=== PATIENT | male | born 1945 | race Caucasian/White ===

== ENCOUNTER 2021-10-13 15:00 | Inpatient (IN) | payer BC ==
[~2021-10-13] VITALS: Ht 182.9 cm; Wt 129.7 kg
[2021-10-13 16:21] LABS: BASOPHILS % 0.6 % (0.0-2.0); EOSINOPHILS % 1.6 % (0.0-5.0); HEMATOCRIT. 35.9 % (42.0-52.0); HEMOGLOBIN. 11.5 g/dL (14.0-18.0); LYMPHOCYTES % 19.6 % (20.0-50.0); MEAN CORPUSCULAR VOLUME 87.3 fL (80.0-94.0); NEUTROPHILS % 67.2 % (40.0-76.0); PLATELET 134 x1000/uL (130-400); RED BLOOD CELL COUNT 4.11 mill/uL (4.7-6.1); RED CELL DISTRIBUTION WIDTH 19.8 % (11.6-14.6)
[2021-10-13 16:24] LABS: CHLORIDE 106 mEq/L (98-107)
[2021-10-13] MEDS ORDERED: PIPERACILLIN/TAZ 3.375G PREMIX 50 ML IV ONE (16:30)
[2021-10-13] MEDS ORDERED: FUROSEMIDE 40MG/4ML VIAL IV ONE (16:30)
[2021-10-13] MEDS ORDERED: VANCOMYCIN 1G PREMIX 200 ML IV ONE (16:30)
[2021-10-13 16:52] LABS: BG CARBOXYHEMOGLOBIN 0.4 % (0.5-1.5); BG DEOXYHEMOGLOBIN 7.3 % (0.0-5.0); BG FRACTION INSPIRED OXYGEN 28; BG HCO3 ACT 27.2 mmol/L (22.0-26.0); BG METHEMOGLOBIN 0.3 % (0.0-1.5); BG OXYGEN SATURATION 92.6 % (92.0-98.5); BG PCO2 45.3 mmHg (35.0-45.0); BG PH 7.397 (7.350-7.450); BG PO2 70.9 mmHg (75.0-100.0); BG SAMPLE SITE RIGHT RADIAL; BG TOTAL HEMOGLOBIN 11.6 g/dL (12.0-18.0); BG VENT MODE NASAL CANNULA
[2021-10-13] MEDS ORDERED: ENOXAPARIN 40MG/0.4ML SYR SUBCUT SCH (18:30)
[2021-10-13] MEDS ORDERED: CEFTRIAXONE 1 G PREMIX 50 ML IV NR (18:45)
[2021-10-13 22:00] VITALS: BP 122/53
[2021-10-13] MEDS: ENOXAPARIN 30MG/0.3ML SYR SUBCUT SCH (22:05)
[2021-10-14] VITALS: BP 102/55
[2021-10-14 00:37] LABS: CREATINE KINASE 78 IU/L (39-308)
[2021-10-14 04:00] VITALS: BP 110/45
[2021-10-14 06:05] LABS: BASOPHILS % 0.6 % (0.0-2.0); EOSINOPHILS % 1.3 % (0.0-5.0); HEMOGLOBIN. 10.9 g/dL (14.0-18.0); LYMPHOCYTES % 15.7 % (20.0-50.0); MEAN CORPUSCULAR HEMOGLOBIN 27.6 pg (28.0-32.0); MEAN PLATELET VOLUME 9.8 fl (7.4-10.4); MONOCYTES % 11.1 % (2.0-8.0); NEUTROPHILS % 71.3 % (40.0-76.0); PLATELET 136 x1000/uL (130-400); RED BLOOD CELL COUNT 3.93 mill/uL (4.7-6.1); RED CELL DISTRIBUTION WIDTH 19.7 % (11.6-14.6)
[2021-10-14 06:34] LABS: CHLORIDE 107 mEq/L (98-107)
[2021-10-14 06:39] LABS: CREATINE KINASE 76 IU/L (39-308)
[2021-10-14 06:43] LABS: HDL CHOLESTEROL 37 mg/dL (40-59); LDL CHOLESTEROL 46 mg/dL (5-100)
[2021-10-14 08:00] VITALS: BP 103/43
[2021-10-14] MEDS ORDERED: DEXT 5%/0.9% NACL 500 ML IV PRN (08:15)
[2021-10-14] MEDS: FUROSEMIDE 40MG/4ML VIAL IV SCH (08:26)
[2021-10-14] MEDS: ENOXAPARIN 30MG/0.3ML SYR SUBCUT SCH ×2 (08:27→20:37)
[2021-10-14 12:00] VITALS: BP 99/51
[2021-10-14 16:00] VITALS: BP 112/55
[2021-10-14] MEDS: CEFTRIAXONE 1,000 MG in DEXTROSE 5% WATER 50 ML IV SCH (18:10)
[2021-10-14 20:00] VITALS: BP 145/90
[2021-10-14] MEDS ORDERED: DEXTROSE 50% WATER 50ML SYRINGE IV PRN (20:00)
[2021-10-14] MEDS: BLOOD SUGAR DIAGNOSTIC STRIP TEST SCH (20:27)
[2021-10-14 20:36] LABS: CREATINE KINASE MB FRACTION 2.7 ng/mL (0.5-3.6)
[2021-10-14 20:54] LABS: T4 FREE 1.08 ng/dL (0.76-1.46)
[2021-10-15] VITALS: BP 122/75
[2021-10-15 04:00] VITALS: BP 122/86
[2021-10-15] MEDS: BLOOD SUGAR DIAGNOSTIC STRIP TEST SCH ×4 (05:45→20:33)
[2021-10-15 08:00] VITALS: BP 123/75
[2021-10-15] MEDS: ENOXAPARIN 30MG/0.3ML SYR SUBCUT SCH ×2 (08:40→20:36)
[2021-10-15] MEDS: FUROSEMIDE 40MG/4ML VIAL IV SCH (08:40)
[2021-10-15 12:00] VITALS: BP 113/61
[2021-10-15 14:38] LABS: BASOPHILS % 0.4 % (0.0-2.0); EOSINOPHILS % 1.5 % (0.0-5.0); HEMATOCRIT. 36.3 % (42.0-52.0); HEMOGLOBIN. 11.4 g/dL (14.0-18.0); LYMPHOCYTES % 21.8 % (20.0-50.0); MEAN CORPUSCULAR VOLUME 86.1 fL (80.0-94.0); MEAN PLATELET VOLUME 9.9 fl (7.4-10.4); MONOCYTES % 14.2 % (2.0-8.0); NEUTROPHILS % 62.1 % (40.0-76.0); PLATELET 141 x1000/uL (130-400); RED BLOOD CELL COUNT 4.22 mill/uL (4.7-6.1); RED CELL DISTRIBUTION WIDTH 19.9 % (11.6-14.6)
[2021-10-15 14:57] LABS: CHLORIDE 107 mEq/L (98-107)
[2021-10-15 16:16] VITALS: BP 122/77
[2021-10-15] MEDS: CEFTRIAXONE 1,000 MG in DEXTROSE 5% WATER 50 ML IV SCH (17:04)
[2021-10-15 20:00] VITALS: BP 137/85
[2021-10-16] VITALS: BP 126/78
[2021-10-16 04:00] VITALS: BP 129/80
[2021-10-16] MEDS: BLOOD SUGAR DIAGNOSTIC STRIP TEST SCH ×4 (05:06→20:51)
[2021-10-16 08:00] VITALS: BP 107/50
[2021-10-16 09:04] LABS: BG BASE EXCESS 3.6 mmol/L (-2.0-2.0); BG CARBOXYHEMOGLOBIN 0.7 % (0.5-1.5); BG DEOXYHEMOGLOBIN 23.3 % (0.0-5.0); BG FRACTION INSPIRED OXYGEN 21; BG HCO3 ACT 28.7 mmol/L (22.0-26.0); BG METHEMOGLOBIN 0.2 % (0.0-1.5); BG OXYGEN SATURATION 76.5 % (92.0-98.5); BG OXYHEMOGLOBIN 75.8 % (94.0-97.0); BG PCO2 45.5 mmHg (35.0-45.0); BG PH 7.417 (7.350-7.450); BG PO2 43.3 mmHg (75.0-100.0); BG SAMPLE SITE RIGHT RADIAL; BG TOTAL HEMOGLOBIN 11.5 g/dL (12.0-18.0); BG VENT MODE ROOM AIR
[2021-10-16] MEDS: ENOXAPARIN 30MG/0.3ML SYR SUBCUT SCH ×2 (09:58→20:51)
[2021-10-16] MEDS: FUROSEMIDE 40MG/4ML VIAL IV SCH (09:58)
[2021-10-16 12:00] VITALS: BP 119/70
[2021-10-16 16:00] VITALS: BP 12/54
[2021-10-16] MEDS: CEFTRIAXONE 1,000 MG in DEXTROSE 5% WATER 50 ML IV SCH (16:59)
[2021-10-16] MEDS: FUROSEMIDE 40MG/4ML VIAL IVP SCH (16:59)
[2021-10-16 20:00] VITALS: BP 138/80
[2021-10-17] VITALS: BP 138/86
[2021-10-17 04:00] VITALS: BP 130/80
[2021-10-17] MEDS: BLOOD SUGAR DIAGNOSTIC STRIP TEST SCH ×4 (05:34→21:07)
[2021-10-17 08:00] VITALS: BP 120/75
[2021-10-17] MEDS: ENOXAPARIN 30MG/0.3ML SYR SUBCUT SCH ×2 (08:38→21:08)
[2021-10-17] MEDS: FUROSEMIDE 40MG/4ML VIAL IVP SCH ×2 (08:38→17:12)
[2021-10-17 12:00] VITALS: BP 125/77
[2021-10-17] MEDS: LOSARTAN POTASSIUM 25 MG TABLET PO SCH (13:59)
[2021-10-17] MEDS: CARVEDILOL 3.125 MG TABLET PO SCH (13:59)
[2021-10-17 16:00] VITALS: BP 99/66
[2021-10-17] MEDS: CEFTRIAXONE 1,000 MG in DEXTROSE 5% WATER 50 ML IV SCH (17:12)
[2021-10-17 20:00] VITALS: BP 134/72
[2021-10-17 22:00] LABS: BASOPHILS % 0.9 % (0.0-2.0); HEMOGLOBIN. 10.8 g/dL (14.0-18.0); LYMPHOCYTES % 20.9 % (20.0-50.0); MEAN CORPUSCULAR HEMOGLOBIN 27.5 pg (28.0-32.0); MEAN CORPUSCULAR VOLUME 84.2 fL (80.0-94.0); MEAN PLATELET VOLUME 9.2 fl (7.4-10.4); MONOCYTES % 10.5 % (2.0-8.0); NEUTROPHILS % 65.7 % (40.0-76.0); PLATELET 142 x1000/uL (130-400); RED BLOOD CELL COUNT 3.92 mill/uL (4.7-6.1); RED CELL DISTRIBUTION WIDTH 19.3 % (11.6-14.6)
[2021-10-17 22:05] LABS: CHLORIDE 104 mEq/L (98-107)
[2021-10-18] VITALS: BP 125/59
[2021-10-18 04:00] VITALS: BP 138/66
[2021-10-18] MEDS: BLOOD SUGAR DIAGNOSTIC STRIP TEST SCH ×4 (07:24→20:54)
[2021-10-18 08:00] VITALS: BP 141/76
[2021-10-18] MEDS: CARVEDILOL 3.125 MG TABLET PO SCH ×2 (08:20→09:00)
[2021-10-18] MEDS: LOSARTAN POTASSIUM 25 MG TABLET PO SCH ×2 (08:20→09:00)
[2021-10-18] MEDS: ENOXAPARIN 30MG/0.3ML SYR SUBCUT SCH ×3 (08:21→21:01)
[2021-10-18 12:00] VITALS: BP 126/76
[2021-10-18] MEDS: FUROSEMIDE 40MG/4ML VIAL IVP SCH ×2 (13:17→17:34)
[2021-10-18 15:46] VITALS: BP 128/56
[2021-10-18] MEDS: CEFTRIAXONE 1,000 MG in DEXTROSE 5% WATER 50 ML IV SCH (17:33)
[2021-10-18 20:00] VITALS: BP 104/56
[2021-10-18] MEDS ORDERED: FURO-151 MT (23:08)
[2021-10-18] MEDS ORDERED: COR3 PO (23:08)
[2021-10-18] MEDS ORDERED: LOSA25TA3 PO (23:08)
[2021-10-18] MEDS ORDERED: METF-414 MT (23:09)
[2021-10-19] VITALS (8 sets, daily range): BP systolic 93–137; BP diastolic 49–82
[2021-10-19] MEDS: BLOOD SUGAR DIAGNOSTIC STRIP TEST SCH ×6 (05:11→21:15)
[2021-10-19] MEDS ORDERED: IODIXANOL 320MG/ML 100 ML BOTTLE IV ONE (07:23)
[2021-10-19] MEDS ORDERED: FENTANYL CITRATE/PF 50MCG/ML 2ML VIAL ONE (07:23)
[2021-10-19] MEDS ORDERED: MIDAZOLAM HCL 2 MG/2 ML VIAL ONE (07:24)
[2021-10-19] MEDS ORDERED: LIDOCAINE HCL 1% 10 MG/ML 10ML VIAL ONE (07:24)
[2021-10-19] MEDS: FUROSEMIDE 40MG/4ML VIAL IVP SCH ×2 (09:00→18:53)
[2021-10-19] MEDS: LOSARTAN POTASSIUM 25 MG TABLET PO SCH (09:00)
[2021-10-19] MEDS: CARVEDILOL 3.125 MG TABLET PO SCH (09:00)
[2021-10-19] MEDS: ENOXAPARIN 30MG/0.3ML SYR SUBCUT SCH ×2 (09:00→21:17)
[2021-10-19] MEDS ORDERED: HEPARIN SODIUM 1,000 UNIT/1ML VIAL IV ONE (10:55)
[2021-10-19] MEDS ORDERED: NITROGLYCERIN 50MCG/ML 10ML VIAL (CATH LAB) IV ONE (10:55)
[2021-10-19] MEDS ORDERED: NICARDIPINE 100MCG/ML 10ML VIAL (CATH LAB) IV ONE (10:55)
[2021-10-19] MEDS: INSULIN LISPRO 100 UNITS/ML SUBCUT SCH (23:07)
[2021-10-20] VITALS (12 sets, daily range): BP systolic 94–143; BP diastolic 42–79
[2021-10-20] MEDS: BLOOD SUGAR DIAGNOSTIC STRIP TEST SCH ×4 (06:14→21:20)
[2021-10-20] MEDS: INSULIN LISPRO 100 UNITS/ML SUBCUT SCH ×4 (08:00→21:00)
[2021-10-20] MEDS: LOSARTAN POTASSIUM 25 MG TABLET PO SCH (09:34)
[2021-10-20] MEDS: FUROSEMIDE 40MG/4ML VIAL IVP SCH ×2 (09:34→17:00)
[2021-10-20] MEDS: CARVEDILOL 3.125 MG TABLET PO SCH (09:38)
[2021-10-20] MEDS: ENOXAPARIN 30MG/0.3ML SYR SUBCUT SCH ×2 (09:38→21:23)
[2021-10-20 10:25] LABS: CHLORIDE 105 mEq/L (98-107)
[2021-10-20] MEDS: CARVEDILOL 6.25 MG TABLET PO SCH (17:00)
[2021-10-21] VITALS (7 sets, daily range): BP systolic 94–129; BP diastolic 50–80
[2021-10-21] MEDS: BLOOD SUGAR DIAGNOSTIC STRIP TEST SCH (06:50)
[2021-10-21] MEDS: INSULIN LISPRO 100 UNITS/ML SUBCUT SCH (08:00)
[2021-10-21] MEDS: ENOXAPARIN 30MG/0.3ML SYR SUBCUT SCH (09:34)
[2021-10-21] MEDS: FUROSEMIDE 40MG/4ML VIAL IVP SCH (09:35)
[2021-10-21] MEDS: LOSARTAN POTASSIUM 25 MG TABLET PO SCH (09:35)
[2021-10-21] MEDS: CARVEDILOL 6.25 MG TABLET PO SCH (09:35)
== END 2021-10-21 12:30 | disposition home or self-care (01) | DRG 622 ==
LOC: ER 15:00 → 8WST 17:22 → EDBEDREQ 17:32 → EDBEDREQTM 17:32 → ENRESERV 19:40 → 5EST 10-19 12:07
PROVIDERS: ADMIT Family Medicine; ATTEND Family Medicine
PROC: 0JBR0ZZ Excision of Left Foot Subcutaneous Tissue and Fascia, Open Approach (ICD-10-PCS; 2021-10-15)
PROC: 0JBQ0ZZ Excision of Right Foot Subcutaneous Tissue and Fascia, Open Approach (ICD-10-PCS; 2021-10-15)
PROC: 0JBR0ZZ Excision of Left Foot Subcutaneous Tissue and Fascia, Open Approach (ICD-10-PCS; 2021-10-15)
PROC: 0JBR0ZZ Excision of Left Foot Subcutaneous Tissue and Fascia, Open Approach (ICD-10-PCS; 2021-10-15)
PROC: 4A023N8 Measurement of Cardiac Sampling and Pressure, Bilateral, Percutaneous Approach (ICD-10-PCS; principal; 2021-10-19)
PROC: B2151ZZ Fluoroscopy of Left Heart using Low Osmolar Contrast (ICD-10-PCS; 2021-10-19)
PROC: B2111ZZ Fluoroscopy of Multiple Coronary Arteries using Low Osmolar Contrast (ICD-10-PCS; 2021-10-19)
DX: E11.69 Type 2 diabetes mellitus with other specified complication (principal); J18.9 Pneumonia, unspecified organism; I50.43 Acute on chronic combined systolic (congestive) and diastolic (congestive) heart failure; J96.00 Acute respiratory failure, unspecified whether with hypoxia or hypercapnia; L03.119 Cellulitis of unspecified part of limb; I25.10 Atherosclerotic heart disease of native coronary artery without angina pectoris; I11.0 Hypertensive heart disease with heart failure; D64.9 Anemia, unspecified; E66.9 Obesity, unspecified; S80.822A Blister (nonthermal), left lower leg, initial encounter; S80.821A Blister (nonthermal), right lower leg, initial encounter; E11.649 Type 2 diabetes mellitus with hypoglycemia without coma; R60.0 Localized edema; E78.5 Hyperlipidemia, unspecified; S91.302A Unspecified open wound, left foot, initial encounter; S91.301A Unspecified open wound, right foot, initial encounter; I35.0 Nonrheumatic aortic (valve) stenosis; I07.1 Rheumatic tricuspid insufficiency; Z68.38 Body mass index [BMI] 38.0-38.9, adult; Z95.0 Presence of cardiac pacemaker; Z20.822 Contact with and (suspected) exposure to COVID-19; X58.XXXA Exposure to other specified factors, initial encounter; Y93.89 Activity, other specified; Y92.89 Other specified places as the place of occurrence of the external cause; Y99.8 Other external cause status
CPT/HCPCS: 36415; 36600; 71045; 78580; 80053; 80061; 82375; 82550; 82553; 82805; 82962; 83036; 83605; 83735; 83880; 84132; 84439; 84443; 84484; 85025; 85379; 87426; 93005; 93306; 93460; 93970; 99291; C1769; C1887; C1893; J0696; J1644; J1650; J1815; J1940; J2250; J2543; J3010; J3370; J3490; J7060; Q9967